=== PATIENT | male | born 1985 | race Caucasian/White ===

== ENCOUNTER 2022-02-28 15:33 | Emergency (ER) | payer BC, SELFPAY ==
[2022-02-28 15:45] VITALS: BP 121/84; PULSE 86; RESP 16; TEMP 36.4; O2SAT 100; BMI 26.6
[2022-02-28 17:17] LABS: Basophils # 0.1 10^3/uL (0.0-0.1); Basophils % 0.4 %; Eosinophils % 0.2 %; Hematocrit 47.8 % (42.0-52.0); Hemoglobin 16.1 g/dL (11.7-16.6); Lymphocytes # 1.6 10^3/uL (0.8-4.8); Lymphocytes % 12.9 %; Mean Corpuscular HGB Conc 33.7 g/dL (30.0-36.0); Mean Platelet Volume 10.6 fL (7.4-10.4); Monocytes # 1.1 10^3/uL (0.2-0.9); Monocytes % 8.8 %; Neutrophils # 9.21 10^3/uL (1.8-7.7); Neutrophils % 76.9 %; Nucleated Red Blood Cells % 0 %; Platelet Count 213 10^3/cmm (130-400); Red Blood Count 5.37 10^6/uL (4.1-5.3)
[2022-02-28 17:42] LABS: Alanine Aminotransferase 44 U/L (0-41); Albumin Level 4.5 g/dL (3.5-5.2); Alkaline Phosphatase 54 U/L (40-130); Anion Gap 18.8 (5-19); Aspartate Amino Transferase 32 U/L (0-40); Blood Urea Nitrogen 20 mg/dL (6-20); Calcium 10.1 mg/dL (8.5-10.5); Carbon Dioxide 25 mmol/L (22-29); Chloride 99 mmol/L (98-107); Globulin 3.1 g/dL (1.3-4.6); Glomerular Filtration Rate 83.6 mL/min (90-130); Glucose 97 mg/dL (65-115); Osmolality Calculated 291 mOsm/kg (285-295); Potassium 3.8 mmol/L (3.5-5.1); Sodium 139 mmol/L (136-145); Total Bilirubin 0.8 mg/dL (0.15-1.2); Total Protein 7.6 g/dL (6.6-8.7)
--- NOTE | 2022-02-28 18:21 | ED_ITS ---
HPI - Nausea/Vomiting/Diarrhea General: Chief complaint: Nausea/Vomiting/Diarrhea Stated complaint: n/v, possible seizure Time Seen by Provider: 02/28/22 17:39 History of Present Illness: Mr. Green is a 37-year-old gentleman without significant past medical history presents to the ER with GI illness and questionable seizure episode. He reports onset of symptoms with numerous episo tevin of nonbilious and nonbloody emesis as well as watery diarrhea starting last night. This continued throughout the day and on the way to [facility] he became anxious and started hyperventilating and subsequently had a witnessed tonic-clonic event. He seemed tired after this event. No definitive known history of seizures. Intensity symptoms is moderate. Course has persisted. No other specific changes in health, exacerbating, or alleviating factors identified. Onset (ago): day(s) Description of vomiting: watery Description of diarrhea: watery Associated nausea: Yes Associated abdominal pain: Yes (Minimal generalized) Location of pain: Diffuse Pain consistency: constant Severity: mild Exacerbating factors: eating and vomiting Relieving factors: none Associated symtoms: Reports fatigue, malaise, nausea, numbness and other Review of Systems General: Reports: 10 or more systems reviewed and unremarkable except in HPI and below Const: Reports: fatigue and malaise GI: Reports: nausea PFSH ED 2 PFSH: Medical History Anxiety Depression Surgical History History of surgery on wrist Physical Exam Const: COMMON NORMALS: alert GENERAL APPEARANCE: cooperative, well devel oped and ill appearing (Mildly) HENMT: COMMON NORMALS: normocephalic and atraumatic HEAD & SCALP: normocephalic and atraumatic Eye: COMMON NORMALS: conjunctivae normal CONJUNCTIVA: Yes conjunctivae normal SCLERA: sclerae normal Neck/C-Spine: COMMON NORMALS: supple GENERAL: Yes trachea midline Resp: COMMON NORMALS: clear to auscultation bilaterally EFFORT & IN SPECTION: Yes able to speak in complete sentences AUSCULTATION: clear to auscultation bilaterally Cardio: COMMON NORMALS: regular rate and regular rhythm RATE: regular rate RHYTHM: regular rhythm GI: COMMON NORMALS: Soft to palpation PALPATION: Yes Soft to palpation, Yes Tenderness to palpation present (GI) (Mild generalized), No Guarding due to palpation present (GI) and No Rigid due to palpation Extremity: GENERAL: Yes normal exam except as noted and No edema Neuro: COMMON NORMALS: moves all extremities SENSORIUM/ORIENTATION: Yes alert and No Orientation impaired Psych: COMMON NORMALS: mental status grossly normal and Normal thought process present THOUGHT PROCESS: Normal thought process present Course Vital Signs: Vital signs: Vital Signs Temperature 98.2 F 02/28/22 20:50 Pulse Rate 85 02/28/22 20:50 Respiratory Rate 16 02/28/22 20:50 Blood Pressure 142/95 02/28/22 20:50 Pulse Oximetry 100 02/28/22 20:50 Oxygen Delivery Me thod 02/28/22 20:50 MDM - Nausea/Vomiting/Diarrhea Medical Decision Making 37-year-old male presenting with nausea, vomiting, diarrhea and decreased p.o. intake. Possible seizure-like episode earlier. Patient is currently nontoxic in appearance with no focal neurologic deficits. No evidence of meningismus. Abdominal exam as above without evidence of acute surgical abdomen. Labs with mild leukocytosis and hemoconcentration. Metabolic panel without significant derangement. Mildly elevated ALT. No evidence of urinary tract infection. Rapid viral testing negative. Given possible patient description of lightheadedness/presyncope/dizziness with difficulty characterizing as well as possible first-time seizure I believe that CT imaging is appropriate. CT imaging of the head is negative for acute pathology. CT abdomen pelvis performed based on abdominal exam and clinical history and negative for acute pathology. Patient feels significantly improved after antiemetic and IV fluids. He is able to tolerate p.o. intake. Most likely etiology of patient's symptoms is nonspecific nausea, vomiting, diarrhea. I am unsure if the patient had a true seizure or more syncopal type episode and therefore seizure precautions were given. Given that this is a first-time event patient does not require initiation of antiepileptic. I will refer for outpatient neurology. The results of ED evaluation were discussed with the patient including prescriptions and/or symptomatic cares (if applicable) including appropriate and responsible use, followup plan, and return precautions. The patient verbalized understanding and felt safe for discharge. Medical Records I reviewed the patient's medical records. Lab Data I reviewed the patient's lab results. 02/28/22 16:58 02/28/22 16:58 Radiology Impressions Head/Neck CTA 02/28/22 18:28 IMPRESSION: 1. Negative head CT. 2. No large vessel stenosis or occlusion. IMPRESSION: No stenosis or occlusion. REFERENCES: NASCET CRITERIA. The degree of stenosis in the cervical segment of the internal carotid artery is based on NASCET criteria. Normal is no stenosis. Mild is less than 50% stenosis. Moderate is 50-69% stenosis. Severe is 70% to 99% stenosis. Total occlusion is no detectable patent lumen. Abdomen/Pelvis CT 02/28/22 18:[address]: 1[address] evidence of acute intra-abdominal or pelvic pathology. 2. Additional findings, as above. Laboratory Results WBC 12.0 10^3/uL (4.0-10.0) H 02/28/22 16:58 RBC 5.37 10^6/uL (4.1-5.3) H 02/28/22 16:58 Hgb 16.1 g/dL (11.7-16.6) 02/28/22 16:58 Hct 47.8 % (42.0-52.0) 02/28/22 16:58 MCV 89.0 fl (80-94) 02/28/22 16:58 MCH 30.0 pg (28.0-34.0) 02/28/22 16:58 MCHC 33.7 g/dL (30.0-36.0) 02/28/22 16:58 RDW 13.0 % (12.1-15.1) 02/28/22 16:58 Plt Count 213 10^3/cmm (130-400) 02/28/22 16:58 MPV 10.6 fL (7.4-10.4) H 02/28/22 16:58 Neut % (Auto) 76.9 % 02/28/22 16:58 Lymph % (Auto) 12.9 % 02/28/22 16:58 Bradley % (Auto) 8.8 % 02/28/22 16:58 Eos % (Auto) 0.2 % 02/28/22 16:58 Baso % (Auto) 0.4 % 02/28/22 16:58 Neut # (Auto) 9.21 10^3/uL (1.8-7.7) H 02/28/22 16:58 Lymph # (Auto) 1.6 10^3/uL (0.8-4.8) 02/28/22 16:58 Bradley # (Auto) 1.1 10^3/uL (0.2-0.9) H 02/28/22 16:58 Eos # (Auto) 0.0 10^3/uL (0.0-0.8) 02/28/22 16:58 Baso # (Auto) 0.1 10^3/uL (0.0-0.1) 02/28/22 16:58 Nucleated RBC % (auto) 0 % 02/28/22 16:58 Nucleated RBCs # 0.0 /100WBC 02/28/22 16:58 Sodium 139 mmol/L (136-145) 02/28/22 16:58 Potassium 3.8 mmol/L (3.5-5.1) 02/28/22 16:58 Chloride 99 mmol/L (98-107) 02/28/22 16:58 Carbon Dioxide 25 mmol/L (22-29) 02/28/22 16:58 Anion Gap 18.8 (5-19) 02/28/22 16:58 BUN 20 mg/dL (6-20) 02/28/22 16:58 Creatinine 1.0 mg/dL (0.7-1.2) 02/28/22 16:58 GFR Calculation 83.6 mL/min (90-130) L 02/28/22 16:58 Glucose 97 mg/dL (65-115) 02/28/22 16:58 Calculated Osmolality 291 mOsm/kg (285-295) 02/28/22 16:58 Calcium 10.1 mg/dL (8.5-10.5) 02/28/22 16:58 Total Bilirubin 0.8 mg/dL (0.15-1.2) 02/28/22 16:58 AST 32 U/L (0-40) 02/28/22 16:58 ALT 44 U/L (0-41) H 02/28/22 16:58 Alkaline Phosphatase 54 U/L (40-130) 02/28/22 16:58 Total Protein 7.6 g/dL (6.6-8.7) 02/28/22 16:58 Albumin 4.5 g/dL (3.5-5.2) 02/28/22 16:58 Globulin 3.1 g/dL (1.3-4.6) 02/28/22 16:58 Urine Color Yellow (Yellow) 02/28/22 20:13 Urine Appearance Clear (CLEAR) 02/28/22 20:13 Urine pH 9 (5-7) H 02/28/22 20:13 Ur Specific [place] 1.020 (1.005-1.030) 02/28/22 20:13 Urine Protein Neg (Negative) 02/28/22 20:13 Urine Glucose (UA) Norm (Normal) 02/28/22 20:13 Urine Ketones 1+ (Negative) H 02/28/22 20:13 Urine Blood Neg (Negative) 02/28/22 20:13 Urine Nitrate Negative (Negative) 02/28/22 20:13 Urine Bilirubin Neg (Negative) 02/28/22 20:13 Prot Sulfosalicylic Acd Negative (Negative) 02/28/22 20:13 Urine Urobilinogen Norm mg/dL (Negative) 02/28/22 20:13 Ur Leukocyte Esterase Negative (Negative) 02/28/22 20:13 Urine Opiates Screen Negative ng/mL (Negative) 02/28/22 20:13 Ur Barbiturates Screen Negative ng/mL (Negative) 02/28/22 20:13 Ur Phencyclidine Scrn Negative ng/mL (Negative) 02/28/22 20:13 Ur Amphetamines Screen Negative ng/mL (Negative) 02/28/22 20:13 U Benzodiazepines Scrn Negative ng/mL (Negative) 02/28/22 20:13 Urine Cocaine Screen Negative ng/mL (Negative) 02/28/22 20:13 U Marijuana (THC) Screen Positive ng/mL (Negative) H 02/28/22 20:13 Influenza Type A Ag negative (Negative) 02/28/22 18:50 Influenza Type B Ag negative (Negative) 02/28/22 18:50 SARS-CoV-2 Ag (Rapid) negative (Negative) 02/28/22 18:50 Discharge Plan Discharge Patient Disposition: Home Clinical Impression: Nausea and vomiting, Diarrhea, Seizure-like activity Condition: Stable Prescriptions: New ondansetron 4 mg tablet,disintegrating 4 mg PO Q8H PRN (Reason: nausea and vomiting) Qty: 15 0RF No Action chlorzoxazone 500 mg tablet 500 mg PO TID PRN (Reason: Muscle Spasm) amitriptyline 25 mg tablet 25 mg PO DAILY escitalopram oxalate 10 mg tablet 10 mg PO DAILY Discharge Orders: Discharge ED (Routine); Ordered 02/28/22 Ordered By: Lukas Dotson Referrals: [facility], [Primary Care Provider] - Discharge Diet: Advance as tolerated and Clear Liquid Discharge Activity: Increase activity as tolerated Patient Instructions: Acute Nausea and Vomiting (ED), Acute Diarrhea (ED), New- Onset Seizure in Adults (ED) Activity Restrictions/Additional Instructions: Thank you for visiting the emergency department. You were seen and evaluated fo r nausea, vomiting, diarrhea as well as possible seizure. The exact cause of your symptoms is unclear though likely viral in nature and does not need inpatient management at this time. I will prescribe antinausea medication. I would expect improvement in the next few days. Please stick to clear liquids and then advance to bland foods as tolerated. Please ensure that you are staying hydrated. The cause of your shaking episode is unclear but may be related to seizure. I will message case management for follow-up with neurology. Please do not drive, operate heavy machinery, swim in a swimming pool, cook over open flames, climb tall objects, or take a bath in a bathtub with water, or otherwise perform tasks that could be dangerous if you have another episode. Return to the emergency department for anything that you are concerned about and feel needs emergency department evaluation. Coding Level of Care Code ED Financial Sales Associate for Jens Betts Exam Comprehensive
--- NOTE | 2022-02-28 18:28 | CTR_ITS ---
PROCEDURE INFORMATION: Exam: CTA Head With Contrast, Arteriography Exam date and time: 02/28/2022 6:54 PM Age: 37 years old Clinical indication: Convulsions / seizures; Additional info: N/v, new seizures, paresthesias TECHNIQUE: Imaging protocol: Computed tomographic angiography of the head with contrast. Exam focused on the arteries. 3D rendering (Not supervised by radiologist): MIP and/or 3D reconstructed images were created by the technologist. Radiation optimization: All CT scans at this facility use at least one of these dose optimization techniques: automated exposure control; mA and/or kV adjustment per patient size (includes targeted exams where dose is matched to clinical indication); or iterative reconstruction. Contrast material: OMNI 350; Contrast volume: 95 ml; Contrast route: INTRAVENOUS (IV); COMPARISON: No relevant prior studies available. RADIATION DOSE METRICS: Total DLP (mGy-cm): 1319.32 FINDINGS: ANTERIOR CIRCULATION: Right internal carotid artery: Intracranial segment is patent with no significant stenosis. No aneurysm. Right middle cerebral artery: No occlusion or significant stenosis. No aneurysm. Right anterior cerebral artery: No occlusion or significant stenosis. No aneurysm. Left internal carotid artery: Intracranial segment is patent with no significant stenosis. No aneurysm. Left middle cerebral artery: No occlusion or significant stenosis. No aneurysm. Left anterior cerebral artery: No occlusion or significant stenosis. No aneurysm. POSTERIOR CIRCULATION: Right vertebral artery: Anatomic variation termination of the right vertebral artery in the PICA. Left vertebral artery: No occlusion or significant stenosis. No aneurysm. Basilar artery: Diminutive caliber of the vertebrobasilar system, also likely congenital. Right posterior cerebral artery: No occlusion or significant stenosis. No aneurysm. Left posterior cerebral artery: No occlusion or significant stenosis. No aneurysm. Brain: No definite mass, mass effect, or midline shift. Cerebral ventricles: No ventriculomegaly. Bones/joints: Unremarkable. No acute fracture. Soft tissues: Unremarkable. Other findings: origin of the bilateral posterior cerebral arteries, anatomic variant. PROCEDURE INFORMATION: Exam: CTA Neck With Contrast Exam date and time: 02/28/2022 6:54 PM Age: 37 years old Clinical indication: Convulsions / seizures; Additional info: N/v, new seizures, paresthesias TECHNIQUE: Imaging protocol: Computed tomographic angiography of the neck with contrast. 3D rendering (Not supervised by radiologist): MIP and/or 3D reconstructed images were created by the technologist. Radiation optimization: All CT scans at this facility use at least one of these dose optimization techniques: automated exposure control; mA and/or kV adjustment per patient size (includes targeted exams where dose is matched to clinical indication); or iterative reconstruction. Contrast material: OMNI 350; Contrast volume: 95 ml; Contrast route: INTRAVENOUS (IV); COMPARISON: No relevant prior studies available. RADIATION DOSE METRICS: Total DLP (mGy-cm): 1319.32 FINDINGS: Right common carotid artery: No stenosis. No dissection or occlusion. Right internal carotid artery: No stenosis of the extracranial segment. No dissection or occlusion. Right external carotid artery: No occlusion or stenosis of the origin. Left common carotid artery: No stenosis. No dissection or occlusion. Left internal carotid artery: No stenosis of the extracranial segment. No dissection or occlusion. Left external carotid artery: No occlusion or stenosis of the origin. Right vertebral artery: No stenosis. No dissection or occlusion. Left vertebral artery: No stenosis. No dissection or occlusion. Anatomic variant direct origin from the arch. Soft tissues: Normal. No significant soft tissue swelling. Bones/joints: No acute fracture. CT/CT angio headneck* [id number] IMPRESSION: 1. Negative head CT. 2. No large vessel stenosis or occlusion. IMPRESSION: No stenosis or occlusion. REFERENCES: NASCET CRITERIA. The degree of stenosis in the cervical segment of the internal carotid artery is based on NASCET criteria. Normal is no stenosis. Mild is less than 50% stenosis. Moderate is 50-69% stenosis. Severe is 70% to 99% stenosis. Total occlusion is no detectable patent lumen.
--- NOTE | 2022-02-28 18:37 | CTR_ITS ---
PROCEDURE INFORMATION: Exam: CT Abdomen And Pelvis With Contrast Exam date and time: 02/28/2022 7:00 PM Age: 37 years old Clinical indication: Nausea and vomiting; Additional info: N/v/d TECHNIQUE: Imaging protocol: Computed tomography of the abdomen and pelvis with contrast. Axial, coronal and sagittal reformatted images were created and reviewed. Radiation optimization: All CT scans at this facility use at least one of these dose optimization techniques: automated exposure control; mA and/or kV adjustment per patient size (includes targeted exams where dose is matched to clinical indication); or iterative reconstruction. Contrast material: OMNIPAQUE 350; Contrast volume: 75 ml; Contrast route: INTRAVENOUS (IV); COMPARISON: No relevant prior studies available. RADIATION DOSE METRICS: Total DLP (mGy-cm): 601.91 FINDINGS: Liver: Unremarkable. Gallbladder and bile ducts: No radiodense gallstones. No biliary ductal dilatation. Pancreas: Unremarkable. Spleen: Unremarkable. Adrenal glands: Normal. No mass. Kidneys and ureters: No mass. No radiodense calculi. No hydronephrosis. Stomach and bowel: No bowel wall thickening. No obstruction. No pneumatosis. Appendix: Normal. Intraperitoneal space: No free fluid. No organized fluid collection. No free air. Vasculature: Unremarkable. No aneurysm. Lymph nodes: No pathologically enlarged lymph nodes. Urinary bladder: Unremarkable as visualized. Reproductive: Unremarkable. Bones/joints: No acute osseous abnormality. Mild degenerative changes. Soft tissues: Unremarkable. CT/CT abdomen pelvis w con* [id number] IMPRESSION: 1. No CT evidence of acute intra-abdominal or pelvic pathology. 2. Additional findings, as above.
[2022-02-28] MEDS: ondansetron 2 mg/ML SDV 2 mL 4 MG IVP (18:42)
[2022-02-28] MEDS: sodium chloride 0.9% 1,000 ML 999 ML IV ×2 (18:42→20:47)
[2022-02-28 18:54] VITALS: BP 125/80; PULSE 78; RESP 17; TEMP 36.4; O2SAT 99
[2022-02-28 19:00] VITALS: BP 111/78; PULSE 83; RESP 16; O2SAT 100
--- NOTE | 2022-02-28 19:00 | PC.NURSE ---
Report from BRISEIDA Chavira. Pt resting quietly. Just returned from CT. Doing well at this time.
[2022-02-28 19:19] LABS: Influenza A by IFA negative (Negative); Influenza B by IFA negative (Negative)
[2022-02-28 19:20] LABS: SARS Covid-2 Antigen negative (Negative)
[2022-02-28 20:18] LABS: Add Urine Microscopic? NO; Charge for UA Resulting for Rev
[2022-02-28 20:29] LABS: Amphetamines Screen Urine Negative (Negative); Barbiturates Screen Urine Negative (Negative); Benzodiazepines Screen Urine Negative (Negative); Cocaine Screen Urine Negative (Negative); Opiate Screen Urine Negative (Negative); PCP Screen Urine Negative (Negative); THC Screen Urine Positive (Negative)
[2022-02-28] MEDS: iohexol 350 mg/mL 500 mL Btl (per mL) IV ×2 (20:48→20:53)
[2022-02-28 20:49] LABS: Bilirubin Urine Neg (Negative); Blood Urine Neg (Negative); Glucose Urine UA Norm (Normal); Ketones Urine 1+ (Negative); Nitrate Urine Negative (Negative); Protein Urine Neg (Negative); Sulfosalicylic Acid Urine Negative (Negative); Urine Appearance Clear (CLEAR); Urine Color Yellow (Yellow); Urobilinogen Urine Norm (Negative); pH Urine 9 (5-7)
[2022-02-28 20:50] VITALS: BP 142/95; PULSE 85; RESP 16; TEMP 36.8; O2SAT 100
[2022-02-28 20:50] LABS: Leukocyte Esterase Urine Negative (Negative)
--- NOTE | 2022-02-28 21:50 | PC.NURSE ---
Pt tolerated PO intake. Resting quietly. Ready to DC. MD notified.
--- NOTE | 2022-02-28 22:15 | PC.NURSE ---
Addendum entered by Raad Noel RN 02/28/22 22:16: This was done at 2039. Original Note: Pt given sandwich bag and drink. Tolerating PO intake well at this time.
--- NOTE | 2022-03-01 09:22 | DCPLANNER ---
Addendum entered by Nicole Parada 04/19/22 07:53: Patient had a follow up appointment scheduled with neurology - patient did attend appointment. Addendum entered by Nicole Parada 03/05/22 09:07: Patient has a follow up appointment scheduled for Wednesday, March 30, [address]22 at 8:[address] Friedman at neurology. Clinic will call patient with appointment information. Original Note: comp field case manager had message to schedule a follow up appointment for patient with neurology. comp field case manager sent patients information to the front office staff at neurology. Patients information will be printed and reviewed. Clinic will call patient with appointment information.
== END 2022-02-28 22:07 | disposition home or self-care (01) ==
PROVIDERS: Family Medicine; Emergency Provider Emergency Medicine
DX: R56.9 Unspecified convulsions (principal); R11.2 Nausea with vomiting, unspecified; R19.7 Diarrhea, unspecified; Z20.822 Contact with and (suspected) exposure to COVID-19
CPT/HCPCS: 70496; 70498; 74177; 80053; 80306; 81003; 85025; 87426; 87804; 96361; 96374; 99285; J2405; J7030; Q9967

== ENCOUNTER 2024-06-21 10:35 | Emergency (ER) | payer BC, MEDICAID, SELFPAY ==
[2024-06-21 10:38] VITALS: BP 138/78; PULSE 81; RESP 15; TEMP 36.6; O2SAT 100; BMI 23.6
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
[2024-06-21] MEDS: dexamethasone 10 mg/mL INJ IVP (12:28)
[2024-06-21] MEDS: orphenadrine 30 mg/mL Inj 2 mL 60 MG IVP (12:31)
[2024-06-21 13:10] VITALS: BP 140/70; PULSE 88; O2SAT 98
== END 2024-06-21 13:10 | disposition home or self-care (01) ==
PROVIDERS: Emergency Provider Family Medicine; PCP Family Medicine
DX: S39.012A Strain of muscle, fascia and tendon of lower back, initial encounter (principal); M54.6 Pain in thoracic spine; X58.XXXA Exposure to other specified factors, initial encounter
CPT/HCPCS: 96374; 96375; 99284; J1100; J2360